=== PATIENT | female | born 1965 | race Caucasian/White ===

== ENCOUNTER 2024-04-09 09:23 | Emergency (ER) | payer MEDICAID, OTHER ==
[~2024-04-09] VITALS: Ht 165.1 cm; Wt 73.0 kg
[2024-04-09 09:30] VITALS: O2SAT 100
[2024-04-09 10:34] LABS: BASOPHILS % 0.4 % (0.0-2.0); EOSINOPHILS % 1.4 % (0.0-5.0); HEMATOCRIT. 36.1 % (36.0-48.0); HEMOGLOBIN. 11.7 g/dL (12.0-16.0); LYMPHOCYTES % 9.5 % (20.0-50.0); MEAN CORPUSCULAR HGB CONC 32.4 g/dL (31.0-37.0); MEAN CORPUSCULAR VOLUME 95.6 fL (81.0-99.0); MEAN PLATELET VOLUME 9.5 fl (7.4-10.4); NEUTROPHILS % 80.7 % (40.0-76.0); PLATELET 233 x1000/uL (130-400); RED BLOOD CELL COUNT 3.78 mill/uL (4.2-5.4)
[2024-04-09 10:40] LABS: POTASSIUM 4.4 mEq/L (3.5-5.1)
[2024-04-09 10:41] LABS: CALCIUM 9.7 mg/dL (8.7-10.4)
[2024-04-09 10:46] LABS: CREATININE 2.6 mg/dL (0.6-1.0)
[2024-04-09] MEDS: CEFTRIAXONE 1GM/50ML 50 ML IV ONE (12:41)
[2024-04-09 16:14] VITALS: BP 135/51; PULSE 76; RESP 16; TEMP 36.61404; O2SAT 98
[2024-04-27] MEDS ORDERED: LISI-186 PO (10:47)
[2024-04-27] MEDS ORDERED: ASPI-1497 PO (10:47)
[2024-04-27] MEDS ORDERED: ATOR40TA70 PO (10:47)
[2024-04-27] MEDS ORDERED: AMLO10TA4 PO (10:47)
[2024-04-27] MEDS ORDERED: FURO-151 PO (10:47)
[2024-04-27] MEDS ORDERED: INSU100I28 SQ (10:48)
[2024-04-27] MEDS ORDERED: MUPI1OIN4 TP (10:55)
[2024-04-27] MEDS ORDERED: ONDA-239 PO (10:55)
[2024-04-27] MEDS ORDERED: METO25TA6 PO (10:55)
[2024-04-27] MEDS ORDERED: METO10TA3 PO (10:55)
[2024-04-27] MEDS ORDERED: INSU100C6 SQ (10:56)
[2024-04-27] MEDS ORDERED: ALBU18HF2 IH (10:59)
== END 2024-04-09 16:26 | disposition short-term general hospital (02) ==
LOC: ER 09:23 → CANBEDREQ 13:04 → ER 16:26
DX: E11.22 Type 2 diabetes mellitus with diabetic chronic kidney disease (principal); I12.0 Hypertensive chronic kidney disease with stage 5 chronic kidney disease or end stage renal disease; N18.6 End stage renal disease
CPT/HCPCS: 80048; 83036; 85025; 87040; 36415; 93922; 93971; 73630; 96365; 99291; J0696; Z7610

== ENCOUNTER 2024-06-18 08:57 | Inpatient (IN) | payer MEDICAID, OTHER ==
[~2024-06-18] VITALS: Ht 170.2 cm; Wt 69.9 kg
[~2024-06-18 08:57] MED LIST: AMLO10TA4 PO; ASPI-1497 PO; ATOR40TA70 PO; FURO-151 PO; HYDR-4001 MT; INSU100C6 SQ; INSU100I28 SQ; LEVO250T74 MT; LISI-186 PO; METO10TA3 PO; METO25TA6 PO; MUPI1OIN4 TP; ONDA-239 PO; P20 MT
[2024-06-18 09:11] VITALS: O2SAT 99
[2024-06-18 10:13] LABS: BASOPHILS % 0.3 % (0.0-2.0); EOSINOPHILS % 1.4 % (0.0-5.0); HEMATOCRIT. 27.7 % (36.0-48.0); LYMPHOCYTES % 7.4 % (20.0-50.0); MEAN CORPUSCULAR HEMOGLOBIN 30.6 pg (28.0-32.0); MEAN CORPUSCULAR HGB CONC 32.4 g/dL (31.0-37.0); MEAN CORPUSCULAR VOLUME 94.5 fL (81.0-99.0); MEAN PLATELET VOLUME 9.6 fl (7.4-10.4); MONOCYTES % 7.2 % (2.0-8.0); NEUTROPHILS % 83.7 % (40.0-76.0); PLATELET 268 x1000/uL (130-400); RED BLOOD CELL COUNT 2.93 mill/uL (4.2-5.4); RED CELL DISTRIBUTION WIDTH 17.2 % (11.6-14.6); WHITE BLOOD COUNT 7.7 x1000/uL (4.5-11.0)
[2024-06-18 10:35] LABS: POTASSIUM 4.6 mEq/L (3.5-5.1)
[2024-06-18 10:36] LABS: CALCIUM 9.3 mg/dL (8.7-10.4)
[2024-06-18 10:43] LABS: CREATININE 2.3 mg/dL (0.6-1.0)
[2024-06-18] MEDS: GLUCAGON,HUMAN RECOMBINANT 1MG/VIAL IM NR (11:15)
[2024-06-18] MEDS: HYDRALAZINE HCL 50MG TABLET PO SCH (11:15)
[2024-06-18] MEDS ORDERED: INSULIN LISPRO 100 UNITS/ML SUBCUT ONE (11:15)
[2024-06-18] MEDS: LOSARTAN 50 MG TABLET PO NR (11:56)
[2024-06-18] MEDS: AMLODIPINE 10MG TABLET PO SCH (11:57)
[2024-06-18] MEDS ORDERED: DEXTROSE 50% WATER 50ML SYRINGE IV PRN (12:00)
[2024-06-18] MEDS ORDERED: IPRATROPIUM/ALBUTEROL 0.5-3(2.5)MG/3ML NEB HHN PRN (12:00)
[2024-06-18] MEDS ORDERED: ACETAMINOPHEN 325MG TABLET PO PRN (12:00)
[2024-06-18] MEDS ORDERED: ONDANSETRON HCL 4MG/2ML INJ IV PRN (12:00)
[2024-06-18] MEDS ORDERED: CLONIDINE 0.1MG TABLET PO PRN (12:00)
[2024-06-18] MEDS: SODIUM CHLORIDE 0.9% 1,000 ML IV SCH (12:00)
[2024-06-18] MEDS ORDERED: DOCUSATE SODIUM 100MG CAPSULE PO PRN (12:00)
[2024-06-18] MEDS ORDERED: INSULIN LISPRO 100 UNITS/ML SUBCUT SCH (12:15)
[2024-06-18] MEDS: INSULIN LISPRO 100 UNITS/ML SUBCUT SCH ×3 (13:00→17:26)
[2024-06-18] MEDS: BLOOD SUGAR DIAGNOSTIC STRIP TEST SCH (13:00)
[2024-06-18 13:45] LABS: IRON 55 ug/dL (50-170)
[2024-06-18 13:48] LABS: TOTAL IRON BINDING CAPACITY 184 ug/dl (250-425)
[2024-06-18] MEDS: PIPERACILLIN/TAZO 3.375G/50ML 50 ML IV SCH (15:14)
[2024-06-18] MEDS: VANCOMYCIN 1.25GM PMX (XELLIA) 250 ML IV NR (15:29)
[2024-06-18 16:38] LABS: TROPONIN I HIGH SENSITIVITY 17 ng/L (3.0-34)
[2024-06-18 16:40] LABS: CREATINE KINASE 20 IU/L (34-145)
[2024-06-18 19:30] VITALS: BP 95/43; PULSE 63; RESP 18; TEMP 37
[2024-06-18 20:00] VITALS: BP 95/43; PULSE 63; RESP 18; TEMP 36.6; O2SAT 80
[2024-06-18] MEDS: INSULIN GLARGINE 100 UNITS/ML SUBCUT SCH (21:00)
[2024-06-18] MEDS: DOXAZOSIN MESYLATE 2MG TABLET PO SCH (21:00)
[2024-06-18] MEDS: FAMOTIDINE 20MG TABLET PO SCH (21:00)
[2024-06-18 22:06] LABS: PARTIAL THROMBOPLASTIN TIME 29.4 sec (23.4-31.0); PROTHROMBIN TIME 11.4 sec (9.6-11.0)
[2024-06-18 22:23] LABS: CREATINE KINASE 18 IU/L (34-145)
[2024-06-19] VITALS: BP 99/50; PULSE 78; RESP 18; TEMP 36; O2SAT 97
[2024-06-19 04:00] VITALS: BP 102/52; PULSE 76; RESP 18; TEMP 35.9; O2SAT 96
[2024-06-19 06:31] LABS: POTASSIUM 4.6 mEq/L (3.5-5.1)
[2024-06-19 06:32] LABS: CALCIUM 8.8 mg/dL (8.7-10.4)
[2024-06-19 06:52] LABS: CREATININE 3.2 mg/dL (0.6-1.0)
[2024-06-19 07:07] LABS: BASOPHILS % 0.3 % (0.0-2.0); EOSINOPHILS % 1.9 % (0.0-5.0); HEMOGLOBIN. 8.6 g/dL (12.0-16.0); MEAN CORPUSCULAR HEMOGLOBIN 31.1 pg (28.0-32.0); MEAN CORPUSCULAR VOLUME 94.5 fL (81.0-99.0); MEAN PLATELET VOLUME 9.7 fl (7.4-10.4); MONOCYTES % 10.1 % (2.0-8.0); NEUTROPHILS % 73.7 % (40.0-76.0); PLATELET 234 x1000/uL (130-400); RED BLOOD CELL COUNT 2.75 mill/uL (4.2-5.4); WHITE BLOOD COUNT 5.7 x1000/uL (4.5-11.0)
[2024-06-19] MEDS: INSULIN LISPRO 100 UNITS/ML SUBCUT SCH (07:20)
[2024-06-19 08:00] VITALS: BP 108/45; PULSE 64; RESP 20; TEMP 36.8; O2SAT 100
[2024-06-19] MEDS: CLOPIDOGREL 75MG TABLET PO SCH (09:07)
[2024-06-19] MEDS: ASPIRIN 81MG TABLET PO SCH (09:08)
[2024-06-19] MEDS: ACETAMINOPHEN 325MG TABLET PO PRN (09:27)
[2024-06-19 12:00] VITALS: BP 104/47; PULSE 76; RESP 18; TEMP 36.4; O2SAT 98
[2024-06-19] MEDS ORDERED: VANCOMYCIN 750MG/150ML (BAXTER) IV SCH (15:00)
[2024-06-19 19:10] LABS: PROTHROMBIN TIME 11.3 sec (9.6-11.0)
[2024-06-19 20:00] VITALS: BP 96/47; PULSE 85; RESP 18; TEMP 37.6; O2SAT 99
[2024-06-19] MEDS: PIPERACILLIN/TAZO 3.375G/50ML 50 ML IV SCH (20:35)
[2024-06-19] MEDS: GUAIFENESIN 200MG/10ML SUGAR FREE UDC PO PRN (20:44)
[2024-06-20] VITALS (11 sets, daily range): BP systolic 99–123; BP diastolic 47–70; PULSE 84–98; RESP 14–20; TEMP 36.3918–38.3; O2SAT 96–100
[2024-06-20] MEDS ORDERED: METH-774 PO (08:01)
[2024-06-20] MEDS ORDERED: CLOP75TA33 (08:02)
[2024-06-20] MEDS ORDERED: EMPA25TA (08:02)
[2024-06-20] MEDS ORDERED: LOSA25TA26 PO (08:02)
[2024-06-20] MEDS ORDERED: EPOETIN ALFA-EPBX 10,000 UNIT/ML VIAL SUBCUT SCH (12:00)
[2024-06-20 13:10] LABS: BASOPHILS % 0.3 % (0.0-2.0); EOSINOPHILS % 1.3 % (0.0-5.0); HEMATOCRIT. 27.8 % (36.0-48.0); LYMPHOCYTES % 7.4 % (20.0-50.0); MEAN CORPUSCULAR HEMOGLOBIN 31.2 pg (28.0-32.0); MEAN CORPUSCULAR HGB CONC 32.2 g/dL (31.0-37.0); MEAN CORPUSCULAR VOLUME 96.8 fL (81.0-99.0); MEAN PLATELET VOLUME 9.6 fl (7.4-10.4); MONOCYTES % 7.5 % (2.0-8.0); NEUTROPHILS % 83.5 % (40.0-76.0); PLATELET 230 x1000/uL (130-400); RED BLOOD CELL COUNT 2.87 mill/uL (4.2-5.4); RED CELL DISTRIBUTION WIDTH 17.3 % (11.6-14.6); WHITE BLOOD COUNT 7.2 x1000/uL (4.5-11.0)
[2024-06-20 13:16] LABS: POTASSIUM 4.8 mEq/L (3.5-5.1)
[2024-06-20 13:18] LABS: CALCIUM 9.4 mg/dL (8.7-10.4)
[2024-06-20 13:23] LABS: CREATININE 4.1 mg/dL (0.6-1.0)
[2024-06-20] MEDS: VANCOMYCIN 500MG/100ML IV NR (18:27)
== END 2024-06-20 20:41 | disposition home or self-care (01) | DRG 197 ==
LOC: ER 08:57 → EDBEDREQTM 11:44 → EDBEDREQ 11:44 → 6EST 18:54
PROVIDERS: ADMIT Hospitalist; ATTEND Hospitalist
PROC: 5A1D70Z Performance of Urinary Filtration, Intermittent, Less than 6 Hours Per Day (ICD-10-PCS; principal; 2024-06-20)
DX: E11.52 Type 2 diabetes mellitus with diabetic peripheral angiopathy with gangrene (principal); I13.2 Hypertensive heart and chronic kidney disease with heart failure and with stage 5 chronic kidney disease, or end stage renal disease; N18.6 End stage renal disease; E11.22 Type 2 diabetes mellitus with diabetic chronic kidney disease; M86.672 Other chronic osteomyelitis, left ankle and foot; L89.899 Pressure ulcer of other site, unspecified stage; E11.69 Type 2 diabetes mellitus with other specified complication; D64.9 Anemia, unspecified; E11.621 Type 2 diabetes mellitus with foot ulcer; I35.0 Nonrheumatic aortic (valve) stenosis; E78.5 Hyperlipidemia, unspecified; I70.222 Atherosclerosis of native arteries of extremities with rest pain, left leg; E11.65 Type 2 diabetes mellitus with hyperglycemia; I50.42 Chronic combined systolic (congestive) and diastolic (congestive) heart failure; Z79.82 Long term (current) use of aspirin; Z99.2 Dependence on renal dialysis; Z79.4 Long term (current) use of insulin; Z79.899 Other long term (current) drug therapy; Z83.3 Family history of diabetes mellitus; Z89.412 Acquired absence of left great toe; Z90.49 Acquired absence of other specified parts of digestive tract
CPT/HCPCS: 36415; 73630; 73721; 80048; 80202; 82550; 82728; 82962; 83036; 83540; 83550; 83735; 83880; 84100; 84484; 85025; 85651; 90935; 93005; 93880; 93923; 93970; 99285; J0885; J1815; J2543; J3370

== ENCOUNTER 2024-12-28 21:32 | Emergency (ER) | payer MEDICAID ==
[~2024-12-28] VITALS: Ht 165.1 cm; Wt 73.0 kg
[~2024-12-28 21:32] MED LIST changes: +AMLO-905 PO; -AMLO10TA4 PO; +CLOP75TA33; +EMPA25TA; +FERR325T6 PO; -LEVO250T74 MT; -LISI-186 PO; +LOSA25TA26 PO; +METH-774 PO; -P20 MT
[2024-12-28 21:48] VITALS: O2SAT 98
[2024-12-28] MEDS: DIPHENHYDRAMINE 25MG CAPSULE PO ONE (23:01)
[2024-12-28] MEDS: ACETAMINOPHEN 500MG TABLET PO ONE (23:02)
[2024-12-28] MEDS: METOCLOPRAMIDE HCL 10MG TABLET PO ONE (23:02)
[2024-12-28 23:12] LABS: CLARITY URINE CLOUDY (CLEAR); COLOR URINE YELLOW (YELLOW); GLUCOSE URINE 1+ (NEGATIVE); KETONES URINE NEGATIVE (NEGATIVE); LEUKOCYTE ESTERASE URINE 2+ (NEGATIVE); NITRITE URINE NEGATIVE (NEGATIVE); OCCULT BLOOD URINE TRACE (NEGATIVE); PH URINE >=9.0 (4.5-8.0); PROTEIN URINE 3+ (NEGATIVE); SPECIFIC GRAVITY URINE 1.007 (1.005-1.030); UROBILINOGEN URINE 0.2 E.U./dL (0.2-1.0)
[2024-12-28 23:42] LABS: BACTERIA URINE 3+; SQUAMOUS EPITHELIAL CELL URINE 2+ /lpf (RARE/1+)
[2024-12-28 23:46] LABS: BASOPHILS % 0.6 % (0.0-2.0); EOSINOPHILS % 4.5 % (0.0-5.0); HEMATOCRIT. 34.7 % (36.0-48.0); HEMOGLOBIN. 11.5 g/dL (12.0-16.0); LYMPHOCYTES % 20.5 % (20.0-50.0); MEAN PLATELET VOLUME 8.6 fl (7.4-10.4); MONOCYTES % 12.6 % (2.0-8.0); NEUTROPHILS % 61.8 % (40.0-76.0); PLATELET 186 x1000/uL (130-400); RED BLOOD CELL COUNT 3.74 mill/uL (4.2-5.4); RED CELL DISTRIBUTION WIDTH 17.0 % (11.6-14.6)
[2024-12-28 23:56] LABS: UREA NITROGEN BLOOD 27 mg/dL (9-23)
[2024-12-28 23:57] LABS: CREATININE 2.2 mg/dL (0.6-1.0)
[2024-12-28 23:58] LABS: ASPARTATE AMINOTRANSFERASE 26 IU/L (<34); BILIRUBIN DIRECT 0.1 mg/dL (<=3.0); BILIRUBIN TOTAL 0.4 mg/dL (0.1-1.0)
[2024-12-28 23:59] LABS: PROTEIN TOTAL 6.9 g/dL (6.0-8.3)
[2024-12-29 02:19] VITALS: BP 136/76; PULSE 75; RESP 16; TEMP 36.8; O2SAT 100
== END 2024-12-29 02:25 | disposition home or self-care (01) ==
LOC: ER 21:32
DX: R51.9 Headache, unspecified (principal); E11.9 Type 2 diabetes mellitus without complications; I10 Essential (primary) hypertension; Z79.4 Long term (current) use of insulin; Z79.82 Long term (current) use of aspirin; Z79.84 Long term (current) use of oral hypoglycemic drugs; Z79.899 Other long term (current) drug therapy; Z99.2 Dependence on renal dialysis
CPT/HCPCS: 99284; 70450; 80076; 80048; 81003; 83690; 85025; 36415; Q0163; J8597